=== PATIENT | female | born 1975 | race American Indian/Alaskan Native ===

== ENCOUNTER 2016-10-20 02:07 | Emergency (ER) | payer MEDICAID ==
[2016-10-20 03:00] LABS: Basophils % (Auto) 0.4 % (0.0-1.8); Eosinophils % (Auto) 0.8 % (0.0-4.3); Hematocrit 33.8 % (30.3-42.9); Hemoglobin 11.1 gm/dl (10.1-14.3); Mean Corpuscular HGB Conc 33 % (30-34); Mean Corpuscular Hemoglobin 26 pg (28-32); Mean Corpuscular Volume 80 fl (79-97); Platelet Count 290 K/mm3 (140-440); Red Blood Count 4.24 M/mm3 (3.65-5.03); Red Cell Distribution Width 16.4 % (13.2-15.2); White Blood Count 12.9 K/mm3 (4.5-11.0)
--- NOTE | 2016-10-20 07:19 | Ultrasound Report ---
FINAL REPORT PROCEDURE: US OB TRANSVAGINAL TECHNIQUE: Transvaginal grayscale and color imaging as well as duplex Doppler of the pelvis was performed. HISTORY: VAG BLEEDING/ COMPARISON: None FINDINGS: The uterus measures 11.6 x 4.6 x 4.5 centimeters. There is an intrauterine gestational sac irregular in shape within the lower uterine segment. There is a pole in place gestational sac and crown-rump length measurements together suggesting a gestational age of 7 weeks 4 days. heartbeat was not identified. There is no free fluid. The ovaries were not seen due to patient body habitus. IMPRESSION: Irregular-appearing gestational sac containing pole without identified heartbeat. The sac is irregular in shape within the lower uterine segment concerning for imminent with demise. Close clinical followup to include serial beta HCGs is well as follow-up ultrasound is recommended. Ovaries not seen
--- NOTE | 2016-10-20 07:21 | Ultrasound Report ---
FINAL REPORT PROCEDURE: US OB \T\lt; = 14 WEEKS FETUS TECHNIQUE: Transabdominal grayscale and color imaging of the pelvis was performed. HISTORY: VAG BLEEDING/ COMPARISON: None FINDINGS: The ovaries were not seen. There is no free fluid. The uterus measures 11.3 x 5.1 x 4.8 centimeters. IMPRESSION: No free fluid. Please see more sensitive transvaginal technique presently performed.
--- NOTE | 2016-10-20 09:49 | Emergency Department Report ---
ED HPI - General Chief complaint: Vaginal Bleeding Stated complaint: VAGINAL BLEEDING/8WKS PREG Time Seen by Provider: 10/20/16 09:25 Source: patient Mode of arrival: Ambulatory Limitations: No Limitations - History of Present Illness Initial comments: 40-year-old female presents to the emergency department complaining of vaginal bleeding and abdominal pain. Patient reports for the past 3 days she has been having occasional spotting, but this has increased. Last night at approximately 7:30 PM she began having a twisting pain in her lower abdomen. At this time, pain has resolved. Patient states she is approximately 8 weeks , . There are no other complaints. MD Complaint: abdominal pain, vaginal bleeding -: Gradual, days(s) (3) Location: pelvis Radiation: none Severity: moderate Severity scale (0 -10): 6 Quality: other ("twisting") Consistency: constant, now resolved Improves with: none Worsens with: none Associated symptoms: vaginal bleeding Vaginal bleeding: light :: Yes Number of weeks : 8 OB History - Current : no complications OB History - Previous Pregnancies: hypertension Pre- care: followed by OB - Related Data : 2 Para: 1 Previous Rx's Medication Instructions Recorded Last Taken Type HYDROcodone/APAP 5-325 [[place] 1 each PO Q6HR PRN #14 tablet 10/20/16 Unknown Rx 5/325] Allergies Allergy/AdvReac Type Severity Reaction Status Date / Time No Known Allergies Allergy Verified 10/20/16 02:24 ED Review of Systems ROS: Stated complaint: VAGINAL BLEEDING/8WKS PREG Other details as noted in HPI Comment: All other systems reviewed and negative Gastrointestinal: abdominal pain Genitourinary: as per HPI (vaginal bleeding) ED Past Medical Hx - Past Medical History Previous Medical History?: No - Surgical History Past Surgical History?: Yes Additional Surgical History: C SECTION X 1 - Family History Family history: no significant - Social History Smoking Status: Never Smoker Substance Use Type: None - Medications Home Medications: Home Medications Medication Instructions Recorded Confirmed Last Taken Type HYDROcodone/APAP 5-325 [[place] 1 each PO Q6HR PRN #14 tablet 10/20/16 Unknown Rx 5/325] ED Physical Exam - General Limitations: No Limitations General appearance: alert, in no apparent distress, obese - Head Head exam: Present: atraumatic, normocephalic - Eye Eye exam: Present: normal appearance, PERRL, EOMI - ENT ENT exam: Present: normal exam, normal orophraynx, mucous membranes moist - Neck Neck exam: Present: normal inspection, full ROM. Absent: tenderness - Respiratory Respiratory exam: Present: normal lung sounds bilaterally. Absent: respiratory distress - Cardiovascular Cardiovascular Exam: Present: regular rate, normal rhythm, normal heart sounds - GI/Abdominal GI/Abdominal exam: Present: soft, normal bowel sounds. Absent: distended, tenderness - Extremities Exam Extremities exam: Present: normal inspection, full ROM. Absent: tenderness - Back Exam Back exam: Present: normal inspection, full ROM. Absent: tenderness - Neurological Exam Neurological exam: Present: alert, oriented X3. Absent: motor sensory deficit - Skin Skin exam: Present: warm, dry, intact ED Course Vital Signs 10/20/16 10/20/16 02:24 06:51 Temperature 98.5 F 98.6 F Pulse Rate 90 82 Respiratory 20 18 Rate Blood Pressure 152/95 152/92 O2 Sat by Pulse 96 100 Oximetry ED Medical Decision Making - Lab Data Result diagrams: 10/20/16 02:34 - Radiology Data Radiology results: report reviewed Pelvic ultrasound reveals an irregular gestational sac located in the lower uterine segment. There is a pole but no heart rate. - Medical Decision Making Lab and imaging results reviewed and discussed with the patient. I've also spoken with the patient's [employer] office. Patient will be discharged home at this time to follow up in their office. She is to call the office today to move her appointment up. - Differential Diagnosis threatened , ectopic Critical care attestation.: If time is entered above; I have spent that time in minutes in the direct care of this critically ill patient, excluding procedure time. ED Disposition Clinical Impression: Spontaneous Disposition: DISCHARGED TO HOME OR SELFCARE Is pt being admited?: No Condition: Stable Instructions: Spontaneous Miscarriage (ED) Prescriptions: HYDROcodone/APAP 5-325 [[place] 5/325] 1 each PO Q6HR PRN #14 tablet PRN Reason: Pain Referrals: KRAIG GUERRERO MD [Staff Physician] - [facility] (Call to have your appointment moved up.) Time of Disposition: 10:36
[2016-10-20 15:53] VITALS: BP 164/75
== END 2016-10-20 11:00 | disposition home or self-care (01) ==
LOC: ED 02:07
DX: O03.9 Complete or unspecified spontaneous abortion without complication (principal); Z3A.08 8 weeks gestation of pregnancy
CPT/HCPCS: 36415; 76801; 76817; 84702; 85025; 86850; 86900; 86901; 99284